=== PATIENT | female | born 1970 | race Caucasian/White ===

== ENCOUNTER 2018-05-23 07:42 | Emergency (ER) | payer MEDICARE, OTHER ==
[~2018-05-23] VITALS: Ht 160 cm; Wt 97.5 kg
[~2018-05-23 07:42] MED LIST: ASPIRIN EC81 M1; AZOR 5-20 MG T1 EACH PO; BUTALB-APAP-CA1 EACH PO; CELEXA 20 MG TA20 MG; CELEXA40 MG PO; COQ-10100 MG; FLEXERIL PO; GEMFIBROZIL 60600 MG PO; HTN MED; HYDROXYZINE HCL50 MG PO; IBUPROFEN 800800 M1 PO; IMITREX100 MG PO; LEVOTHROID100 MC1 PO; LEVOTHYROXIN0.088 MG PO; LEVOTHYROXINE 0.1 MG PO; LIPITOR10 MG PO; LISINOPRIL40 MG; LORTAB 7.5/5001 TA1 PO; MEDROLDOSEPACK PO; MUCINEX TA600 MG/TA2 PO; NEURONTIN 300M300 M2 PO; NORCO 5-325 TA1 EACH PO; NORFLEX100 MG PO; NORVASC 5 MG TAB5 MG; OXYBUTYNIN 5 MG5 M1 PO; PERCOCET 5-3251 EACH PO; PRINIVIL10 MG PO; PROZAC10 MG PO; RESTORIL15 MG PO; ROBAXIN 750 MG750 MG PO; SIMVASTATIN40 MG; TIROSINT88 MCG PO; TOPAMAX 100 MG100 MG PO; TOPROL XL50 MG PO; TRAMADOL 50 MG50 MG PO; VERAPAMIL E.R240 M1 PO; VITAMIN D-32000 UNIT; ZPAK PO
[2018-05-23 07:47] VITALS: BP 144/108
[2018-05-23] MEDS ORDERED: NORVASC10 MG PO (07:56)
[2018-05-23] MEDS ORDERED: LIPITOR10 MG PO (07:56)
[2018-05-23] MEDS ORDERED: FUROSEMIDE 40 M40 M1 PO (07:56)
[2018-05-23] MEDS ORDERED: CYMBALTA60 MG PO (07:56)
[2018-05-23] MEDS ORDERED: COZAAR 25 MG TA25 M1 PO (07:57)
[2018-05-23] MEDS ORDERED: KEPPRA 500 MG500 M2 PO (07:57)
[2018-05-23] MEDS ORDERED: ATIVAN0.5 MG PO (07:57)
[2018-05-23] MEDS ORDERED: METHYLPHENIDATE20 MG PO (07:58)
[2018-05-23] MEDS ORDERED: REQUIP 0.25 M0.25 M1 PO (07:59)
[2018-05-23] MEDS ORDERED: AMBIEN 5 MG TABL5 M1 PO (07:59)
[2018-05-23] MEDS ORDERED: PROTONIX40 M1 PO (07:59)
[2018-05-23] MEDS ORDERED: MEDROLDOSEPACK PO (08:24)
[2018-05-23] MEDS ORDERED: HYDROCODONE-AP1 EA11 PO (08:24)
[2018-05-23] MEDS ORDERED: IBUPROFEN 800800 MG PO (08:24)
== END 2018-05-23 08:36 | disposition home or self-care (01) ==
LOC: M.ERS 07:42
DX: M17.0 Bilateral primary osteoarthritis of knee (principal); I10 Essential (primary) hypertension; E78.5 Hyperlipidemia, unspecified; E03.9 Hypothyroidism, unspecified; F32.9 Major depressive disorder, single episode, unspecified; F41.9 Anxiety disorder, unspecified; M79.7 Fibromyalgia; Z90.710 Acquired absence of both cervix and uterus; Z98.890 Other specified postprocedural states; Z88.5 Allergy status to narcotic agent; Z88.8 Allergy status to other drugs, medicaments and biological substances

== ENCOUNTER → 2020-03-16 | Outpatient (CLI) | payer MEDICARE, OTHER ==
[~2020-03-16] MED LIST changes: +AMBIEN 5 MG TABL5 M1 PO; +ATIVAN0.5 MG PO; +COZAAR 25 MG TA25 M1 PO; +COZAAR 50 MG TA50 MG PO; +CYMBALTA60 MG PO; +FUROSEMIDE 40 M40 M1 PO; +HYDROCODONE-AP1 EA11 PO; +IBUPROFEN 800800 MG PO; +KEPPRA 500 MG500 M2 PO; +METHYLPHENIDATE20 MG PO; +NORVASC10 MG PO; +PROTONIX40 M1 PO; +REQUIP 0.25 M0.25 M1 PO; +VICTOZA0.6 MG/0.1 SUBQ
== END ==
LOC: M.PC 09:40
PROVIDERS: ATTEND Physical Medicine & Rehabilitation
DX: M17.12 Unilateral primary osteoarthritis, left knee (principal); G62.9 Polyneuropathy, unspecified; M25.561 Pain in right knee

== ENCOUNTER → 2020-03-21 | Outpatient (CLI) | payer MEDICARE, OTHER | END | disposition home or self-care (01) | LOC: M.PC 09:50 | PROVIDERS: ATTEND Physical Medicine & Rehabilitation | DX: M25.562 Pain in left knee (principal); M17.12 Unilateral primary osteoarthritis, left knee; I10 Essential (primary) hypertension; E78.5 Hyperlipidemia, unspecified; E03.9 Hypothyroidism, unspecified; F32.9 Major depressive disorder, single episode, unspecified; F41.9 Anxiety disorder, unspecified; M79.7 Fibromyalgia; Z98.890 Other specified postprocedural states; Z79.899 Other long term (current) drug therapy; Z90.710 Acquired absence of both cervix and uterus; Z98.51 Tubal ligation status; Z88.8 Allergy status to other drugs, medicaments and biological substances ==

== ENCOUNTER → 2020-04-06 | Outpatient (CLI) | payer MEDICARE, OTHER | LOC: M.LAB 15:09 | PROVIDERS: ATTEND Physical Medicine & Rehabilitation | DX: Z20.828 Contact with and (suspected) exposure to other viral communicable diseases (principal) ==

== ENCOUNTER → 2020-05-25 | Outpatient (CLI) | payer MEDICARE, OTHER | LOC: M.PC 09:37 | PROVIDERS: ATTEND Physical Medicine & Rehabilitation | DX: M17.12 Unilateral primary osteoarthritis, left knee (principal); G62.9 Polyneuropathy, unspecified; Z79.899 Other long term (current) drug therapy ==

== ENCOUNTER → 2020-07-20 | Outpatient (CLI) | payer MEDICARE, OTHER | LOC: M.PC 09:36 | PROVIDERS: ATTEND Physical Medicine & Rehabilitation | DX: M17.12 Unilateral primary osteoarthritis, left knee (principal); G62.9 Polyneuropathy, unspecified ==

== ENCOUNTER → 2020-09-07 | Outpatient (CLI) | payer MEDICARE, OTHER | LOC: M.PC 10:12 | PROVIDERS: ATTEND Physical Medicine & Rehabilitation | DX: M17.12 Unilateral primary osteoarthritis, left knee (principal); G62.9 Polyneuropathy, unspecified ==

== ENCOUNTER 2020-09-14 17:16 | Emergency (ER) | payer MEDICARE, OTHER ==
[~2020-09-14] VITALS: Ht 160 cm; Wt 113.4 kg
[2020-09-14] MEDS ORDERED: NORCO 10-325 T1 EACH PO (17:58)
[2020-09-14 18:16] VITALS: BP 178/91
== END 2020-09-14 18:17 | disposition home or self-care (01) ==
LOC: M.ERS 17:16
DX: M25.561 Pain in right knee (principal); I10 Essential (primary) hypertension; E78.5 Hyperlipidemia, unspecified; E03.9 Hypothyroidism, unspecified; M79.7 Fibromyalgia; Z90.710 Acquired absence of both cervix and uterus; Z98.51 Tubal ligation status; Z90.89 Acquired absence of other organs; Z88.5 Allergy status to narcotic agent; Z88.8 Allergy status to other drugs, medicaments and biological substances

== ENCOUNTER → 2020-11-23 | Outpatient (CLI) | payer MEDICARE, OTHER ==
[~2020-11-23] MED LIST changes: +NORCO 10-325 T1 EACH PO
== END ==
LOC: M.PC 10:20
PROVIDERS: ATTEND Physical Medicine & Rehabilitation
DX: M17.12 Unilateral primary osteoarthritis, left knee (principal); M25.561 Pain in right knee; I10 Essential (primary) hypertension; E78.5 Hyperlipidemia, unspecified; E03.9 Hypothyroidism, unspecified; G58.8 Other specified mononeuropathies; Z90.710 Acquired absence of both cervix and uterus; Z98.890 Other specified postprocedural states

== ENCOUNTER → 2020-11-25 | Outpatient (CLI) | payer MEDICARE, OTHER | LOC: M.LAB 10:05 | PROVIDERS: ATTEND Physical Medicine & Rehabilitation | DX: Z01.812 Encounter for preprocedural laboratory examination (principal); Z20.822 Contact with and (suspected) exposure to COVID-19 ==

== ENCOUNTER → 2021-01-11 | Outpatient (CLI) | payer MEDICARE, OTHER | LOC: M.PC 09:46 | PROVIDERS: ATTEND Physical Medicine & Rehabilitation | DX: M17.12 Unilateral primary osteoarthritis, left knee (principal); G58.9 Mononeuropathy, unspecified; I10 Essential (primary) hypertension; E78.5 Hyperlipidemia, unspecified; E03.9 Hypothyroidism, unspecified; F32.9 Major depressive disorder, single episode, unspecified; F41.9 Anxiety disorder, unspecified; Z90.710 Acquired absence of both cervix and uterus; Z79.899 Other long term (current) drug therapy; Z79.891 Long term (current) use of opiate analgesic; Z88.5 Allergy status to narcotic agent; Z88.8 Allergy status to other drugs, medicaments and biological substances ==

== ENCOUNTER → 2021-05-31 | Outpatient (CLI) | payer MEDICARE, OTHER | LOC: M.PC 08:52 | PROVIDERS: ATTEND Physical Medicine & Rehabilitation | DX: M25.561 Pain in right knee (principal); M25.562 Pain in left knee; M17.12 Unilateral primary osteoarthritis, left knee; I10 Essential (primary) hypertension; G62.9 Polyneuropathy, unspecified; Z88.8 Allergy status to other drugs, medicaments and biological substances ==

== ENCOUNTER → 2021-06-09 | Outpatient (CLI) | payer MEDICARE, OTHER | LOC: M.LAB 13:25 | PROVIDERS: ATTEND Physical Medicine & Rehabilitation | DX: Z01.812 Encounter for preprocedural laboratory examination (principal); Z20.822 Contact with and (suspected) exposure to COVID-19 ==